=== PATIENT | female | born 1960 | race African-American/Black ===

== ENCOUNTER 2021-06-04 07:26 | Inpatient (IN) | payer OTHER ==
[~2021-06-04] VITALS: Ht 175.3 cm; Wt 104.5 kg
[2021-06-04] MEDS ORDERED: CARBAMIDE PEROXIDE 6.5% OTIC SOLN 15ML RIGHT EAR ONE (07:45)
[2021-06-04] MEDS ORDERED: MECLIZINE 25MG TABLET PO ONE (08:00)
[2021-06-04] MEDS ORDERED: ONDANSETRON HCL 4MG/2ML INJ IV ONE (08:00)
[2021-06-04] MEDS ORDERED: SODIUM CHLORIDE 0.9% 1,000 ML IV ONE (08:00)
[2021-06-04 09:06] LABS: BASOPHILS % 0.7 % (0.0-2.0); HEMATOCRIT. 31.4 % (36.0-48.0); HEMOGLOBIN. 9.9 g/dL (12.0-16.0); LYMPHOCYTES % 30.2 % (20.0-50.0); MEAN CORPUSCULAR HEMOGLOBIN 24.7 pg (28.0-32.0); MEAN CORPUSCULAR VOLUME 77.9 fL (81.0-99.0); MEAN PLATELET VOLUME 10.3 fl (7.4-10.4); MONOCYTES % 6.7 % (2.0-8.0); NEUTROPHILS % 62.4 % (40.0-76.0); PLATELET 284 x1000/uL (130-400); RED BLOOD CELL COUNT 4.02 mill/uL (4.2-5.4); RED CELL DISTRIBUTION WIDTH 15.1 % (11.6-14.6)
[2021-06-04 09:10] LABS: CHLORIDE 108 mEq/L (98-107)
[2021-06-04] MEDS ORDERED: ONDANSETRON HCL 4MG/2ML INJ IV NR (09:19)
[2021-06-04] MEDS ORDERED: MECLIZINE 25MG TABLET PO NR (09:19)
[2021-06-04] MEDS ORDERED: ASPIRIN 325MG EC TABLET PO ONE (09:45)
[2021-06-04] MEDS ORDERED: HYDRALAZINE 20MG/ML VIAL IV ONE (10:15)
[2021-06-04 12:00] VITALS: BP 162/79
[2021-06-04 15:00] VITALS: BP 138/64
[2021-06-04] MEDS ORDERED: METHYLPREDNISOLONE SOD SUCC 40 MG/ML VIAL IV NR (18:00)
[2021-06-04] MEDS ORDERED: MECLIZINE 25MG TABLET PO PRN (18:00)
[2021-06-04] MEDS ORDERED: DEXTROSE 50% WATER 50ML SYRINGE IV PRN (18:00)
[2021-06-04] MEDS ORDERED: AZITHROMYCIN 500 MG TABLET PO NR (18:00)
[2021-06-04] MEDS ORDERED: IPRATROPIUM/ALBUTEROL 0.5-3(2.5)MG/3ML NEB HHN SCH (18:00)
[2021-06-04] MEDS ORDERED: HYDRALAZINE 20MG/ML VIAL IV PRN (18:38)
[2021-06-04] MEDS ORDERED: AMLODIPINE 5MG TABLET PO NR (18:38)
[2021-06-04 20:00] VITALS: BP 136/70
[2021-06-04] MEDS: BLOOD SUGAR DIAGNOSTIC STRIP TEST SCH (21:04)
[2021-06-04] MEDS: INSULIN LISPRO 100 UNITS/ML SUBCUT SCH (21:04)
[2021-06-05] VITALS: BP 148/77
[2021-06-05 04:00] VITALS: BP 158/72
[2021-06-05] MEDS: BLOOD SUGAR DIAGNOSTIC STRIP TEST SCH ×2 (06:26→12:33)
[2021-06-05] MEDS: INSULIN LISPRO 100 UNITS/ML SUBCUT SCH ×2 (06:28→12:53)
[2021-06-05 08:00] VITALS: BP 149/75
[2021-06-05] MEDS ORDERED: ASPIRIN 81MG TABLET PO SCH (09:00)
[2021-06-05] MEDS ORDERED: GLIM4TAB36 MT (09:07)
[2021-06-05] MEDS ORDERED: ATEN50TA MT (09:07)
[2021-06-05] MEDS ORDERED: ATOR80TA MT (09:07)
[2021-06-05] MEDS ORDERED: METF-416 PO (09:07)
[2021-06-05] MEDS ORDERED: LIDOCAINE HCL/PF 1% 2ML VIAL ONE (11:17)
[2021-06-05] MEDS ORDERED: FLUT9.9S BOTHNSTRLS (11:37)
[2021-06-05] MEDS ORDERED: CARB15DR63 RIGHT EAR (11:37)
[2021-06-05] MEDS ORDERED: LORA10CA MT (11:37)
[2021-06-05] MEDS ORDERED: AMOX-424 MT (11:37)
[2021-06-05 12:00] VITALS: BP_SYST 142; BP_SYST 165; BP_SYST 169; BP_DIAS 72; BP_DIAS 83; BP_DIAS 85
[2021-06-05 12:23] LABS: BG BASE EXCESS -2.8 mmol/L (-2.0-2.0); BG CARBOXYHEMOGLOBIN 0.2 % (0.5-1.5); BG DEOXYHEMOGLOBIN 2.8 % (0.0-5.0); BG HCO3 ACT 20.6 mmol/L (22.0-26.0); BG METHEMOGLOBIN 0.3 % (0.0-1.5); BG OXYGEN SATURATION 97.2 % (92.0-98.5); BG OXYHEMOGLOBIN 96.7 % (94.0-97.0); BG PCO2 31.5 mmHg (35.0-45.0); BG PH 7.434 (7.350-7.450); BG PO2 94.7 mmHg (75.0-100.0); BG SAMPLE SITE RIGHT RADIAL; BG TOTAL HEMOGLOBIN 11.4 g/dL (12.0-18.0); BG VENT MODE ROOM AIR
[2021-06-05 12:50] LABS: HEMATOCRIT 33.3 % (36.0-48.0); HEMOGLOBIN 10.7 g/dL (12.0-16.0); MEAN CORPUSCULAR HEMOGLOBIN 25.3 pg (28.0-32.0); MEAN CORPUSCULAR VOLUME 78.5 fL (81.0-99.0); PLATELET 313 x1000/uL (130-400); RED BLOOD CELL COUNT 4.24 mill/uL (4.2-5.4); RED CELL DISTRIBUTION WIDTH 14.9 % (11.6-14.6)
[2021-06-05] MEDS ORDERED: CARBAMIDE PEROXIDE 6.5% OTIC SOLN 15ML RIGHT EAR SCH (13:00)
[2021-06-05 13:06] LABS: CHLORIDE 105 mEq/L (98-107)
[2021-06-05 14:36] VITALS: BP 142/72
[2021-06-05] MEDS ORDERED: ASPI-1406 MT (16:15)
== END 2021-06-05 16:20 | disposition home or self-care (01) | DRG 152 ==
LOC: ER 07:26 → 7EST 11:36 → EDBEDREQ 11:39 → EDBEDREQTM 11:39 → ENRESERV 12:01
PROVIDERS: ADMIT Internal Medicine; ATTEND Internal Medicine
DX: J06.9 Acute upper respiratory infection, unspecified (principal); J18.9 Pneumonia, unspecified organism; H61.21 Impacted cerumen, right ear; E11.65 Type 2 diabetes mellitus with hyperglycemia; I10 Essential (primary) hypertension; D64.9 Anemia, unspecified; E66.9 Obesity, unspecified; J45.909 Unspecified asthma, uncomplicated; Z20.822 Contact with and (suspected) exposure to COVID-19; Z68.34 Body mass index [BMI] 34.0-34.9, adult; Z79.84 Long term (current) use of oral hypoglycemic drugs; Z79.899 Other long term (current) drug therapy
CPT/HCPCS: 36415; 36600; 71045; 80053; 82375; 82805; 82962; 84484; 85025; 85027; 87426; 93005; 99291; J0360; J1815; J2405; J2920; J3490; J7030; J8597